=== PATIENT | female | born 1955 | race Caucasian/White ===

== ENCOUNTER → 2016-11-30 | Outpatient (CLI) | payer OTHER ==
[~2016-11-30] MED LIST: ASPI-496 PO; CALC1CAP8 PO; LANS30CA16 PO; LISD60CA PO; MINO100T2 PO; OXYC15TA PO; OXYC60TA8 PO; VENL75CA PO
== END | disposition home or self-care (01) ==
LOC: CFH 10:06
PROVIDERS: ATTEND Internal Medicine
DX: Z13.820 Encounter for screening for osteoporosis (principal); M81.0 Age-related osteoporosis without current pathological fracture; F90.9 Attention-deficit hyperactivity disorder, unspecified type; G89.29 Other chronic pain; I10 Essential (primary) hypertension; M85.80 Other specified disorders of bone density and structure, unspecified site; F06.31 Mood disorder due to known physiological condition with depressive features
CPT/HCPCS: 77080